=== PATIENT | male | born 1985 | race Hispanic/Latino ===

== ENCOUNTER 2018-10-26 22:51 | Emergency (ER) | payer SELFPAY ==
[~2018-10-26] VITALS: Ht 172.7 cm; Wt 185.1 kg
[2018-10-26] MEDS ORDERED: CLINDAMYCIN PHOS 900MG/ 50ML 50 ML IV STA (23:27)
--- NOTE | 2018-10-27 00:15 | Diagnostic Imaging Report ---
Exam: 3 views of the right foot Indication: Open wound on plantar side of the toe Comparison: None Findings: Soft tissue wound medial plantar aspect of the distal first digit. No underlying fracture or erosion. No radiopaque foreign body. The remainder of the foot is normal. Impression: Soft tissue wound of the distal first digit without erosion, fracture or radiopaque foreign body. Signed by: Dr. Cely Oh M.D. on 10/27/2018 12:12 AM
== END 2018-10-27 00:49 | disposition home or self-care (01) ==
LOC: FSED 22:51
DX: L89.893 Pressure ulcer of other site, stage 3 (principal)
CPT/HCPCS: 80053; 81003; 99283